=== PATIENT | female | born 1975 | race American Indian/Alaskan Native ===

== ENCOUNTER 2017-04-03 10:32 | Inpatient (IN) | payer OTHER, BC ==
[2017-04-03 11:22] LABS: Eosinophils % (Auto) 4.1 % (0.0-4.3); Hematocrit 32.9 % (30.3-42.9); Hemoglobin 10.1 gm/dl (10.1-14.3); Mean Corpuscular HGB Conc 31 % (30-34); Mean Corpuscular Volume 75 fl (79-97); Platelet Count 220 K/mm3 (140-440); Red Cell Distribution Width 17.8 % (13.2-15.2); White Blood Count 6.2 K/mm3 (4.5-11.0)
[2017-04-03 11:23] LABS: Mean Corpuscular Hemoglobin 23 pg (28-32)
[2017-04-03 11:32] LABS: Anion Gap 16 mmol/L; Blood Urea Nitrogen 9 mg/dL (7-17); Calcium 8.8 mg/dL (8.4-10.2); Carbon Dioxide 24 mmol/L (22-30); Chloride 100.6 mmol/L (98-107); Glucose 86 mg/dL (65-100); INR 0.96 (0.87-1.13); Potassium 4.4 mmol/L (3.6-5.0); Sodium 136 mmol/L (137-145)
[2017-04-03 11:33] LABS: Partial Thromboplastin Time 28.3 Sec. (24.2-36.6)
--- NOTE | 2017-04-03 11:40 | Cat Scan Report ---
CT HEAD WITHOUT CONTRAST: 04/03/17 10:32:00 CLINICAL: Headache. TECHNIQUE: 2.5-mm noncontrast scans. COMPARISON:None FINDINGS: The ventricles and sulci are normal for age. No abnormal density. No mass or mass effect. No hemorrhage, edema or extra-axial collection. The sinuses are clear. Normal orbits and soft tissues. The calvarium and skull base are intact. IMPRESSION: Normal head CT.
[2017-04-03 12:08] LABS: Bilirubin,Urine NEG (Negative); Blood,Urine MOD (Negative); Ketones,Urine NEG (Negative); Leukocyte Esterase,Urine NEG (Negative); Nitrite,Urine NEG (Negative); Protein,Urine <15 mg/dL mg/dL (Negative); Urobilinogen,Urine < 2.0 mg/dL (<2.0)
[2017-04-03] MEDS ORDERED: APRESOLINE ONE (14:06)
[2017-04-03] MEDS ORDERED: APRESOLINE IV ONE ×2 (14:09→18:41)
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
[2017-04-03] MEDS ORDERED: NORMODYNE IV ONE (14:32)
[2017-04-03] MEDS ORDERED: ZOFRAN IV ONE (14:32)
[2017-04-03] MEDS ORDERED: MORPHINE IV ONE (14:32)
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
[2017-04-03] MEDS ORDERED: DUONEB 0.5 MG-3 MG/3 ML SOLN IH PRN (15:57)
[2017-04-03] MEDS ORDERED: MILK OF MAGNESIA PO PRN (15:57)
[2017-04-03] MEDS ORDERED: TYLENOL PO PRN (15:57)
[2017-04-03] MEDS ORDERED: DULCOLAX PR PRN (15:57)
[2017-04-03] MEDS ORDERED: NORVASC PO ONE (16:01)
[2017-04-03] MEDS ORDERED: HCTZ PO ONE (16:01)
[2017-04-03] MEDS ORDERED: PROVENTIL IH PRN (16:22)
[2017-04-03] MEDS ORDERED: NORVASC ONE (18:45)
[2017-04-03] MEDS ORDERED: LOPRESSOR ONE (18:46)
[2017-04-03] MEDS ORDERED: HCTZ ONE (20:41)
[2017-04-03] MEDS: BABY ASPIRIN PO SCH (20:52)
[2017-04-03] MEDS ORDERED: AMBIEN PO ONE (22:10)
--- NOTE | 2017-04-04 09:50 | Admit Criteria Form ---
Admission Criteria Documentation: HYPERTENSION Clinical Indications for Admission to Inpatient Care ( Place "X" for any and all applicable criteria): Admission is indicated for ANY ONE of the following(1)(2)(3)(4): [ ]I. Hypertensive emergency, with evidence of acute and progressing target organ disease as indicated by ANY ONE of the following: [ ]a) Hypertensive encephalopathy (eg, confusion, altered mental status) [ ]b) Cerebral infarction [ ]c) Intracranial hemorrhage [ ]d) Myocardial ischemia or infarction [ ]e) Pulmonary edema [ ]f) Aortic dissection [ ]g) Seizure [ ]h) Acute renal insufficiency [ ]i) Papilledema [ ]j) Microangiopathic hemolytic anemia [ ]II. Adrenergic crisis (eg, severe hypertension due to pheochromocytoma crisis, cocaine or amphetamine intoxication, or clonidine withdrawal) [X]III. Severe hypertension (SBP greater than 180 mmHg or DBP greater than 110 mmHg or greater than the 95th percentile for age, gender, and height in pediatric patients) that cannot be controlled (eg, to SBP less than 160 mmHg and DBP less than 100 mmHg in adults) by treatment with oral medication in emergency department or observation care Extended stay beyond goal length of stay may be needed for(11)(12)(13): [ ]a) Persistent hypertensive encephalopathy [ ]b) Continuation of pulmonary edema [ ]c) Recurring or persistent severe hypertension [ ]d) Target organ damage (eg, angina, stroke, aortic dissection) [ ]e) Associated renal insufficiency The original [employer] content created by [employer] has been revised. The portions of the content which have been revised are identified through the use of italic text or in bold, and [facility] has neither reviewed nor approved the modified material. All other unmodified content is copyright [facility]. Please see references footnoted in the original [facility] edition 2016 Admission Criteria Met: Yes
[2017-04-04] MEDS: BABY ASPIRIN PO SCH (11:13)
[2017-04-04] MEDS: APRESOLINE IV PRN ×2 (11:14→21:45)
[2017-04-04] MEDS: ZOFRAN IV PRN ×2 (13:25→21:45)
[2017-04-04] MEDS: PERCOCET 5/325 PO PRN (21:43)
--- NOTE | 2017-04-04 23:54 | Progress Note ---
Assessment and Plan (1) Accelerated hypertension Current Visit: Yes Status: Acute Plan to address problem: Serial physical exam, BP reasonable-141/75, hydralazine prn, supportive care. Patient on Losartan 100 mg po qd and Coreg 12.5 q12h (2) Obesity Current Visit: Yes Status: Acute Qualifiers: Obesity type: O Obesity severity: O Plan to address problem: Pt counseled regarding increased physical activity, balanced diet (3) Noncompliance Current Visit: Yes Status: Acute Plan to address problem: PT counseled (4) Paresthesia of right upper extremity Current Visit: Yes Status: Acute Plan to address problem: repeat physical exam, Normal c spine x ray (5) DVT prophylaxis Current Visit: Yes Status: Acute Subjective Date of service: 04/04/17 Principal diagnosis: Accelerated HTN Interval history: Symptomatically better Objective - Exam Narrative Exam: Lying comfortably - Constitutional Vitals: Vital Signs - 12hr 04/04/17 04/04/17 04/04/17 15:00 21:19 21:45 Temperature 98.0 F 98.9 F Pulse Rate 74 Pulse Rate [ 86 76 Left Radial] Respiratory 20 20 Rate Blood Pressure 170/86 Blood Pressure 141/75 170/86 [Left Radial Artery] General appearance: Present: no acute distress, well-nourished - EENT Eyes: PERRL, EOM intact ENT: hearing intact, clear oral mucosa Ears: bilateral: normal - Neck Neck: supple, normal ROM - Respiratory Respiratory effort: normal Respiratory: bilateral: CTA - Breasts Breasts: normal - Cardiovascular Rhythm: regular Heart Sounds: Present: S1 & S2. Absent: gallop, rub Extremities: pulses intact, No edema, normal color, Full ROM - Gastrointestinal General gastrointestinal: Present: soft, non-tender, non-distended, normal bowel sounds - Genitourinary Female genitourinary: normal - Integumentary Integumentary: clear, warm, dry - Musculoskeletal Musculoskeletal: 1, strength equal bilaterally - Neurologic Neurologic: moves all extremities - Psychiatric Psychiatric: memory intact, appropriate mood/affect, intact judgment & insight - Labs CBC & Chem 7: 04/03/17 10:52 04/03/17 10:52
[2017-04-05] MEDS ORDERED: COZAAR PO SCH (00:10)
[2017-04-05] MEDS ORDERED: COREG PO SCH ×3 (01:00→10:00)
[2017-04-05 05:27] LABS: Alanine Aminotransferase 9 units/L (7-56); Albumin 3.7 g/dL (3.9-5); Albumin/Globulin Ratio 1.2 %; Alkaline Phosphatase 77 units/L (35-129); Anion Gap 18 mmol/L; BUN/Creatinine Ratio 23.33; Blood Urea Nitrogen 21 mg/dL (7-17); Carbon Dioxide 24 mmol/L (22-30); Chloride 100.3 mmol/L (98-107); Glucose 116 mg/dL (65-100); Potassium 3.9 mmol/L (3.6-5.0); Sodium 138 mmol/L (137-145); Total Protein 6.9 g/dL (6.3-8.2)
[2017-04-05] MEDS: PERCOCET 5/325 PO PRN (09:50)
[2017-04-05] MEDS: BABY ASPIRIN PO SCH (09:51)
[2017-04-05] MEDS: ZOFRAN IV PRN (12:09)
--- NOTE | 2017-04-05 12:50 | Discharge Summary ---
Providers - Providers Date of Admission: 04/03/17 15:57 Date of discharge: 04/05/17 Attending physician: JAMES SAMPSON Primary care physician: INK GRINDER Hospitalization Condition: Stable Hospital course: Discharge Diagnosis and management: (1) Accelerated hypertension Current Visit: Yes Status: Acute Plan to address problem: Serial physical exam, BP reasonable-141/75, hydralazine prn, supportive care. Patient on Losartan 100 mg po qd and Coreg 12.5 q12h (2) Obesity Current Visit: Yes Status: Acute Qualifiers: Obesity type: O Obesity severity: O Plan to address problem: Pt counseled regarding increased physical activity, balanced diet (3) Noncompliance Current Visit: Yes Status: Acute Plan to address problem: PT counseled (4) Paresthesia of right upper extremity Current Visit: Yes Status: Acute Plan to address problem: repeat physical exam, Normal c spine x ray Disposition: DC- TO HOME OR SELFCARE Time spent for discharge: 32 minutes Core Measure Documentation - Palliative Care Palliative Care/ Comfort Measures: Not Applicable - Core Measures Any of the following diagnoses?: none Exam - Constitutional Vitals: Temp Pulse Resp BP Pulse Ox 98.5 F 71 20 147/83 100 04/05/17 08:00 04/05/17 08:00 04/05/17 08:00 04/05/17 08:00 04/05/17 08:00 General appearance: Present: no acute distress, obese - EENT Eyes: Present: PERRL ENT: hearing intact, clear oral mucosa - Neck Neck: Present: supple, normal ROM - Respiratory Respiratory effort: normal Respiratory: bilateral: CTA - Cardiovascular Heart Sounds: Present: S1 & S2. Absent: rub, click - Extremities Extremities: pulses symmetrical, No edema Peripheral Pulses: within normal limits - Abdominal General gastrointestinal: Present: soft, non-tender, non-distended, normal bowel sounds - Integumentary Integumentary: Present: clear, warm, dry - Musculoskeletal Musculoskeletal: gait normal, strength equal bilaterally - Psychiatric Psychiatric: appropriate mood/affect, intact judgment & insight - Neurologic Neurologic: CNII-XII intact, moves all extremities Plan Activity: advance as tolerated Weight Bearing Status: Weight Bear as Tolerated Follow up with: PRIMARY CARE, [Primary Care Provider] - 3-5 Days Prescriptions: amLODIPine [Norvasc] 10 mg PO QDAY #30 tablet Aspirin [Aspirin BABY CHEW TAB] 81 mg PO QDAY #30 tab.chew hydrALAZINE [Apresoline TAB] 50 mg PO Q8HR #90 tablet oxyCODONE /ACETAMINOPHEN [Percocet 5/325 mg] 1 tab PO Q8H PRN #14 tablet PRN Reason: Pain, Moderate (4-6)
[2017-04-05 13:15] VITALS: BP 178/100
[2017-04-05] MEDS ORDERED: NORVASC PO SCH (14:00)
[2017-04-05] MEDS ORDERED: APRESOLINE PO SCH (14:00)
== END 2017-04-05 18:40 | disposition home or self-care (01) | DRG 292 ==
LOC: ED 10:32 → 3A 15:57
PROVIDERS: ADMIT Internal Medicine; ATTEND Internal Medicine
DX: I11.0 Hypertensive heart disease with heart failure (principal); Z68.45 Body mass index [BMI] 70 or greater, adult; E66.9 Obesity, unspecified; I50.9 Heart failure, unspecified; R20.9 Unspecified disturbances of skin sensation; Z91.19 Patient's noncompliance with other medical treatment and regimen; Z82.49 Family history of ischemic heart disease and other diseases of the circulatory system; Z83.3 Family history of diabetes mellitus
CPT/HCPCS: 36415; 70450; 71020; 72040; 80048; 80053; 81001; 81025; 83880; 84484; 85025; 85610; 85670; 85730; 93005; 93010; 96374; 96375; 96376; J0360; J2270; J2405

== ENCOUNTER 2017-08-24 11:59 | Emergency (ER) | payer BC, OTHER ==
--- NOTE | 2017-08-24 14:02 | Cat Scan Report ---
CRANIAL CT SCAN: History: Headache. Serial contiguous axial images were obtained through the cranium. Intravenous contrast material was not administered. The ventricles are normal in size and appearance. There is no mass effect or midline shift. No areas of abnormally increased or decreased attenuation are seen. No mass lesion is seen. The mastoid air cells and visualized portions of the sinuses are normal. IMPRESSION: Cranial CT scan within normal limits.
[2017-08-24] MEDS ORDERED: REGLAN IV ONE (14:28)
[2017-08-24] MEDS ORDERED: BENADRYL IV ONE (14:28)
--- NOTE | 2017-08-24 14:46 | Emergency Department Report ---
ED Headache HPI - General Chief Complaint: Headache Stated Complaint: HEADACHE, RIGHT SIDE ARM PAIN Time Seen by Provider: 08/24/17 13:17 - History of Present Illness Initial Comments: She is a 42-year-old female who presents to ED complaining of right sided, throbbing, sharp, intermittent, 7 out of 10 intensity type headache 3-4 days. Patient denies any trauma or falls or history of headache. She admits history of elevated hypertension controlled with medication. She denies dizziness, blurry vision, fever, chills, nausea, vomiting, chest pain or shortness of breath Allergies/Adverse Reactions: Allergies No Known Allergies Allergy (Verified 08/24/17 12:08) Home Medications: Ambulatory Orders Aspirin [Aspirin BABY CHEW TAB] 81 mg PO QDAY #30 tab.chew 04/05/17 amLODIPine [Norvasc] 10 mg PO QDAY #30 tablet 04/05/17 hydrALAZINE [Apresoline TAB] 50 mg PO Q8HR #90 tablet 04/05/17 oxyCODONE /ACETAMINOPHEN [Percocet 5/325 mg] 1 tab PO Q8H PRN #14 tablet Prochlorperazine [Compazine] 10 mg PO Q8HR #24 tablet 08/24/17 ED Review of Systems ROS: Stated complaint: HEADACHE, RIGHT SIDE ARM PAIN Other details as noted in HPI Constitutional: denies: chills, fever Eyes: denies: eye pain, eye discharge, vision change ENT: denies: ear pain, throat pain Respiratory: denies: cough, shortness of breath, wheezing Cardiovascular: denies: chest pain, palpitations Endocrine: no symptoms reported Gastrointestinal: denies: abdominal pain, nausea, diarrhea Genitourinary: denies: urgency, dysuria, frequency, discharge Musculoskeletal: denies: back pain, joint swelling, arthralgia Skin: denies: rash, lesions Neurological: headache. denies: weakness, numbness, paresthesias Psychiatric: denies: anxiety, depression Hematological/Lymphatic: denies: easy bleeding, easy bruising ED Past Medical Hx - Past Medical History Hx Hypertension: Yes Hx Congestive Heart Failure: Yes ("enlarged heart") - Surgical History Past Surgical History?: No - Social History Smoking Status: Never Smoker Substance Use Type: None - Medications Home Medications: Home Medications Medication Instructions Recorded Confirmed Last Taken Type Aspirin [Aspirin BABY CHEW TAB] 81 mg PO QDAY #30 tab.chew 04/05/17 Unknown Rx amLODIPine [Norvasc] 10 mg PO QDAY #30 tablet 04/05/17 Unknown Rx hydrALAZINE [Apresoline TAB] 50 mg PO Q8HR #90 tablet 04/05/17 Unknown Rx oxyCODONE /ACETAMINOPHEN [Percocet 1 tab PO Q8H PRN #14 tablet 04/05/17 Unknown Rx 5/325 mg] Prochlorperazine [Compazine] 10 mg PO Q8HR #24 tablet 08/24/17 Unknown Rx ED Physical Exam - General Limitations: No Limitations General appearance: alert, in no apparent distress - Head Head exam: Present: atraumatic, normocephalic, normal inspection - Eye Eye exam: Present: normal appearance, PERRL - ENT ENT exam: Present: mucous membranes moist - Neck Neck exam: Present: normal inspection - Respiratory Respiratory exam: Present: normal lung sounds bilaterally. Absent: respiratory distress - Cardiovascular Cardiovascular Exam: Present: regular rate, normal rhythm. Absent: systolic murmur, diastolic murmur, rubs, gallop - GI/Abdominal GI/Abdominal exam: Present: soft, normal bowel sounds - Extremities Exam Extremities exam: Present: normal inspection, full ROM - Back Exam Back exam: Present: normal inspection, full ROM - Neurological Exam Neurological exam: Present: alert, oriented X3, CN II-XII intact, normal gait - Expanded Neurological Exam Expanded Patient oriented to: Present: person, place, time Speech: Present: fluid speech Cranial nerves: EOM's Intact: Normal, Facial Sensation: Normal Cerebellar function: Finger to Nose: Normal Sensory exam: Upper Extremity Light Touch: Normal, Lower Extremity Light Touch: Normal Motor strength exam: RUE: 5, LUE: 5, RLE: 5, LLE: 5 DTR: knee (R): 2+, knee (L): 2+ Best Eye Response (Hugh): (4) open spontaneously Best Motor Response (Hugh): (6) obeys commands Best Verbal Response (Hugh): (5) oriented Hugh Total: 15 - Psychiatric Psychiatric exam: Present: normal affect, normal mood - Skin Skin exam: Present: warm, dry, intact, normal color. Absent: rash ED Course Vital Signs 08/24/17 12:09 Temperature 98.8 F Pulse Rate 67 Respiratory 18 Rate Blood Pressure 149/79 O2 Sat by Pulse 99 Oximetry ED Medical Decision Making - Radiology Data Radiology results: report reviewed, image reviewed CRANIAL CT SCAN: History: Headache. Serial contiguous axial images were obtained through the cranium. Intravenous contrast material was not administered. The ventricles are normal in size and appearance. There is no mass effect or midline shift. No areas of abnormally increased or decreased attenuation are seen. No mass lesion is seen. The mastoid air cells and visualized portions of the sinuses are normal. IMPRESSION: Cranial CT scan within normal limits. Transcribed By: MRP Dictated By: KAYLAN WELLER MD Electronically Authenticated By: KAYLAN WELLER MD Signed Date/Time: 08/24/17 4436 - Medical Decision Making 42-year-old female presents with acute headache ED course: CT scan of the head ordered. Patient received Benadryl and Reglan ED CT scan of the head was normal, no acute findings. Discussed this with the patient. Discussed the patient will follow up with a primary care physician. Discussed to avoid stress factors that could result in headaches. I discussed patient of his symptoms worsen or new symptoms arise to return to the ED immediately Vital signs are normal patient is in no acute distress. Critical care attestation.: If time is entered above; I have spent that time in minutes in the direct care of this critically ill patient, excluding procedure time. ED Disposition Clinical Impression: Headache Qualifiers: Headache type: unspecified Headache chronicity pattern: acute headache Intractability: not intractable Qualified Code(s): R51 - Headache Migraine headache without aura Qualifiers: Status migrainosus presence: without status migrainosus Intractability: not intractable Qualified Code(s): G43.009 - Migraine without aura, not intractable , without status migrainosus Disposition: DC-01 TO HOME OR SELFCARE Is pt being admited?: No Does the pt Need Aspirin: No Condition: Stable Instructions: Migraine Headache (ED), Acute Headache (ED) Additional Instructions: Take your medication as prescribed. His symptoms worsen or new symptoms arise please return to ED Follow-up with the primary care doctor has referred. Prescriptions: Prochlorperazine [Compazine] 10 mg PO Q8HR #24 tablet Referrals: YOSI SALMON MD [Primary Care Provider] - 3-5 Days ANIYAH HUNTER MD [Staff Physician] - 3-5 Days [facility] [Outside] - 3-5 Days [facility] [Outside] - 3-5 Days [facility] [Outside] - 3-5 Days Forms: Accompanied Note, Work/School Release Form(ED) Time of Disposition: 15:11
[2017-08-24 15:53] VITALS: BP 136/84
== END 2017-08-24 16:11 | disposition home or self-care (01) ==
LOC: ED 11:59
DX: G43.009 Migraine without aura, not intractable, without status migrainosus (principal); I10 Essential (primary) hypertension
CPT/HCPCS: 70450; 96374; 96375; 99283; J1200; J2765

== ENCOUNTER 2019-12-17 13:20 | Emergency (ER) | payer BC ==
[2019-12-17] MEDS ORDERED: CYCLOBENZAPRINE 10 MG TAB PO ONE (14:55)
--- NOTE | 2019-12-17 15:14 | Emergency Department Report ---
ED Chest Pain HPI - General Chief Complaint: Chest Pain Stated Complaint: CHEST DISCOMFORT Time Seen by Provider: 12/17/19 14:40 Source: patient Mode of arrival: Wheelchair Limitations: No Limitations - History of Present Illness Initial Comments: Patient is a 44-year-old female presents emergency room with complaints of substernal chest pain that began this morning. She states when it comes on it only lasts a few minutes and feels like a stabbing pain. She states the pain is worse with movement. She denies any nausea, vomiting, diarrhea, shortness of breath, leg swelling, fever, recent illness. She denies any recent surgery, recent travel, hormone use. She states she has a past medical history of hypertension, enlarged heart, murmur. She is a non-smoker. pt had a normal stress test three years ago. - Related Data Previous Rx's Medication Instructions Recorded Last Taken Type Aspirin [Aspirin BABY CHEW TAB] 81 mg PO QDAY #30 tab.chew 04/05/17 Unknown Rx amLODIPine 10 mg PO QDAY #30 tablet 04/05/17 Unknown Rx hydrALAZINE [Apresoline TAB] 50 mg PO Q8HR #90 tablet 04/05/17 Unknown Rx oxyCODONE /ACETAMINOPHEN [Percocet 1 tab PO Q8H PRN #14 tablet 04/05/17 Unknown Rx 5/325 mg] Prochlorperazine [Compazine] 10 mg PO Q8HR #24 tablet 08/24/17 Unknown Rx Naproxen 500 mg PO BID PRN #14 tablet 12/17/19 Unknown Rx methOCARBAMOL [Robaxin TAB] 500 mg PO QHS PRN #10 tablet 12/17/19 Unknown Rx Allergies Allergy/AdvReac Type Severity Reaction Status Date / Time No Known Allergies Allergy Verified 08/24/17 12:08 Heart Score - HEART Score History: Slightly suspicious EKG: Normal Age: 45-65 Risk factors: 1-2 risk factors Troponin: < normal limit HEART Score: 2 ED Review of Systems ROS: Stated complaint: CHEST DISCOMFORT Other details as noted in HPI Comment: All other systems reviewed and negative ED Past Medical Hx - Past Medical History Previous Medical History?: Yes Hx Hypertension: Yes Hx Congestive Heart Failure: Yes ("enlarged heart") - Social History Smoking Status: Never Smoker Substance Use Type: None - Medications Home Medications: Home Medications Medication Instructions Recorded Confirmed Last Taken Type Aspirin [Aspirin BABY CHEW TAB] 81 mg PO QDAY #30 tab.chew 04/05/17 Unknown Rx amLODIPine 10 mg PO QDAY #30 tablet 04/05/17 Unknown Rx hydrALAZINE [Apresoline TAB] 50 mg PO Q8HR #90 tablet 04/05/17 Unknown Rx oxyCODONE /ACETAMINOPHEN [Percocet 1 tab PO Q8H PRN #14 tablet 04/05/17 Unknown Rx 5/325 mg] Prochlorperazine [Compazine] 10 mg PO Q8HR #24 tablet 08/24/17 Unknown Rx Naproxen 500 mg PO BID PRN #14 tablet 12/17/19 Unknown Rx methOCARBAMOL [Robaxin TAB] 500 mg PO QHS PRN #10 tablet 12/17/19 Unknown Rx ED Physical Exam - General Limitations: No Limitations General appearance: alert, in no apparent distress - Head Head exam: Present: atraumatic, normocephalic - Eye Eye exam: Present: normal appearance - ENT ENT exam: Present: mucous membranes moist - Respiratory Respiratory exam: Present: normal lung sounds bilaterally, chest wall tenderness (reproducible substernal chest wall ttp, no crepitus, no deformity). Absent: respiratory distress, wheezes, rales, rhonchi, stridor, accessory muscle use, decreased breath sounds, prolonged expiratory - Cardiovascular Cardiovascular Exam: Present: regular rate, normal rhythm, normal heart sounds. Absent: systolic murmur, diastolic murmur, rubs, gallop - Neurological Exam Neurological exam: Present: alert, oriented X3 - Psychiatric Psychiatric exam: Present: normal affect, normal mood - Skin Skin exam: Present: warm, dry, intact ED Course Vital Signs 12/17/19 12/17/19 16:03 16:21 Temperature 97.3 F L 97.8 F Pulse Rate 67 64 Respiratory 16 18 Rate Blood Pressure 185/93 157/85 O2 Sat by Pulse 100 100 Oximetry KJ score - Kj Score Age > 65: (0) No Aspirin use within the Past 7 Days: (0) No 3 or more CAD Risk Factors: (0) No 2 or more Angina events in past 24 hrs: (0) No Known CAD with more than 50% Stenosis: (0) No Elevated Cardiac Markers: (0) No ST Deviation Greater than 0.5mm: (0) No KJ Score: 0 ED Medical Decision Making - Lab Data Result diagrams: 12/17/19 15:19 12/17/19 15:19 Lab Results 12/17/19 12/17/19 12/17/19 Range/Units 15:19 15:19 17:14 WBC 9.1 (4.5-11.0) K/mm3 RBC 4.42 (3.65-5.03) M/mm3 Hgb 12.0 (10.1-14.3) gm/dl Hct 37.4 (30.3-42.9) % MCV 85 (79-97) fl MCH 27 L (28-32) pg MCHC 32 (30-34) % RDW 19.8 H (13.2-15.2) % Plt Count 267 (140-440) K/mm3 Lymph % (Auto) 27.5 (13.4-35.0) % [place] % (Auto) 8.3 H (0.0-7.3) % Eos % (Auto) 2.4 (0.0-4.3) % Baso % (Auto) 1.0 (0.0-1.8) % Lymph # 2.5 (1.2-5.4) K/mm3 [place] # 0.8 (0.0-0.8) K/mm3 Eos # 0.2 (0.0-0.4) K/mm3 Baso # 0.1 (0.0-0.1) K/mm3 Seg Neutrophils % 60.8 (40.0-70.0) % Seg Neutrophils # 5.5 (1.8-7.7) K/mm3 Sodium 136 L (137-145) mmol/L Potassium 4.6 (3.6-5.0) mmol/L Chloride 98.8 (98-107) mmol/L Carbon Dioxide 24 (22-30) mmol/L Anion Gap 18 mmol/L BUN 14 (7-17) mg/dL Creatinine 0.8 (0.7-1.2) mg/dL Estimated GFR > 60 ml/min BUN/Creatinine Ratio 18 % Glucose 96 (65-100) mg/dL Calcium 9.7 (8.4-10.2) mg/dL Total Bilirubin 0.30 (0.1-1.2) mg/dL AST 19 (5-40) units/L ALT 17 (7-56) units/L Alkaline Phosphatase 74 (35-129) units/L Troponin T < 0.010 < 0.010 (0.00-0.029) ng/mL Total Protein 7.6 (6.3-8.2) g/dL Albumin 4.2 (3.9-5) g/dL Albumin/Globulin Ratio 1.2 % - EKG Data EKG shows normal: sinus rhythm, axis, intervals, QRS complexes - EKG Data 12/17/19 17:53 LAE no STEMI - Radiology Data Radiology results: report reviewed CHEST PA AND LATERAL VIEWS INDICATION: MAIN: CHEST pain TODAY . COMPARISON: 04/03/2017 FINDINGS: Support devices: None. Heart: Within normal limits. Lungs/Pleura: No acute pulmonary or pleural findings. IMPRESSION: 1. No acute findings. Signer Name: Frederic Alexander MD Signed: 12/17/2019 3:08 PM Workstation Name: [id number] Transcribed By: BAR Dictated By: Frederic Alexander MD Electronically Authenticated By: Frederic Alexander MD Signed Date/Time: 12/17/19 1508 DD/ 1506 TD/TT: - Medical Decision Making Patient is a 44-year-old female presents emergency room with complaints of substernal chest pain that began this morning. She states when it comes on it only lasts a few minutes and feels like a stabbing pain. She states the pain is worse with movement. She denies any nausea, vomiting, diarrhea, shortness of breath, leg swelling, fever, recent illness. She denies any recent surgery, recent travel, hormone use. She states she has a past medical history of hypertension, enlarged heart, murmur. She is a non-smoker. pt had a normal stress test three years ago. VSS. on exam: reproducible substernal chest wall ttp, no crepitus, no deformity. EKG with LAE, NO STEMI, otherwise normal. labs are normal. trop negative x2. PERC criteria negative for PE. CXR 1. No acute findings. Heart score is 2 and KJ score is 0, very low risk for cardiac event. pt given aspirin and flexeril and symptoms improved. pt will be referred to outpatient cardiology. given prescription for robaxin and naproxen. advised pt please take medication as prescribed as needed. Do not drive or operate heavy machinery while taking muscle relaxer. May use ice pack for 15 minutes at a time, heating pad for 15 minutes at a time, rest. Follow-up with a bottom painter. Follow-up with a primary care doctor. Return to the emergency room for any new or worsening symptoms. - Differential Diagnosis ACS, costochondritis, anemia, PE, PTX, GERD, dissection, anxiety, pericardi Critical care attestation.: If time is entered above; I have spent that time in minutes in the direct care of this critically ill patient, excluding procedure time. ED Disposition Clinical Impression: Chest pain Qualifiers: Chest pain type: unspecified Qualified Code(s): R07.9 - Chest pain, unspecified Disposition: TO HOME OR SELFCARE Is pt being admited?: No Does the pt Need Aspirin: No Condition: Stable Instructions: Chest Pain (ED), Costochondritis (ED) Additional Instructions: Please take medication as prescribed as needed. Do not drive or operate heavy machinery while taking muscle relaxer. May use ice pack for 15 minutes at a time, heating pad for 15 minutes at a time, rest. Follow-up with a bottom painter. Follow-up with a primary care doctor. Return to the emergency room for any new or worsening symptoms. Prescriptions: methOCARBAMOL [Robaxin TAB] 500 mg PO QHS PRN #10 tablet PRN Reason: Muscle Spasm Naproxen 500 mg PO BID PRN #14 tablet PRN Reason: pain Referrals: PRIMARY CARE, [Referring] - 2-3 Days WESLEY REYNOSO MD [Staff Physician] - 2-3 Days Forms: Work/School Release Form(ED) Time of Disposition: 17:54 Print Language: [place]
[2019-12-17] MEDS ORDERED: ASPIRIN 325 MG TAB ONE (15:33)
[2019-12-17 15:59] LABS: Basophils # (Auto) 0.1 K/mm3 (0.0-0.1); Eosinophils # (Auto) 0.2 K/mm3 (0.0-0.4); Eosinophils % (Auto) 2.4 % (0.0-4.3); Hematocrit 37.4 % (30.3-42.9); Lymphocytes # (Auto) 2.5 K/mm3 (1.2-5.4); Lymphocytes % (Auto) 27.5 % (13.4-35.0); Mean Corpuscular HGB Conc 32 % (30-34); Mean Corpuscular Volume 85 fl (79-97); Monocytes # (Auto) 0.8 K/mm3 (0.0-0.8); Monocytes % (Auto) 8.3 % (0.0-7.3); Platelet Count 267 K/mm3 (140-440); Red Blood Count 4.42 M/mm3 (3.65-5.03); Red Cell Distribution Width 19.8 % (13.2-15.2)
[2019-12-17 16:05] LABS: Alanine Aminotransferase 17 units/L (7-56); Albumin 4.2 g/dL (3.9-5); BUN/Creatinine Ratio 18; Blood Urea Nitrogen 14 mg/dL (7-17); Calcium 9.7 mg/dL (8.4-10.2); Hemolysis Index 11
[2019-12-17 16:26] VITALS: BP 157/85
[2019-12-18] MEDS ORDERED: ASPIRIN 325 MG TAB PO ONE (14:55)
== END 2019-12-17 18:20 | disposition home or self-care (01) ==
LOC: ED 13:20
DX: R07.89 Other chest pain (principal); I11.0 Hypertensive heart disease with heart failure; I50.9 Heart failure, unspecified; Z79.899 Other long term (current) drug therapy
CPT/HCPCS: 36415; 71046; 80053; 84484; 85025; 93005; 93010